=== PATIENT | male | born 1980 | race Caucasian/White ===

== ENCOUNTER 2017-03-16 19:11 | Emergency (ER) | payer BC ==
[~2017-03-16] VITALS: Ht 1818.6 cm; Wt 95.0 kg
[2017-03-16] MEDS ORDERED: KEFLEX500 MG PO (22:27)
[2017-03-16 22:36] VITALS: BP 140/99
== END 2017-03-16 22:37 | disposition home or self-care (01) ==
LOC: EME 19:11
DX: L03.116 Cellulitis of left lower limb (principal); S80.212A Abrasion, left knee, initial encounter; X58.XXXA Exposure to other specified factors, initial encounter
CPT/HCPCS: 99281; 99284